=== PATIENT | female | born 1985 | race Two or more races ===

== ENCOUNTER 2023-09-28 11:32 | Outpatient (CLI) | payer OTHER | END 2023-09-28 11:43 | disposition home or self-care (01) | LOC: RAD 11:32 | DX: M99.01 Segmental and somatic dysfunction of cervical region (principal); M99.02 Segmental and somatic dysfunction of thoracic region; M99.03 Segmental and somatic dysfunction of lumbar region; M99.04 Segmental and somatic dysfunction of sacral region; M99.05 Segmental and somatic dysfunction of pelvic region ==